=== PATIENT | female | born 1995 | race American Indian/Alaskan Native ===

== ENCOUNTER 2021-10-12 15:12 | Emergency (ER) | payer MEDICAID ==
--- NOTE | 2021-10-12 15:45 | Emergency Department Report ---
ED ENT HPI - General Chief complaint: Sore Throat Stated complaint: SORE THROAT Time Seen by Provider: 10/12/21 15:21 Source: patient Mode of arrival: Ambulatory Limitations: No Limitations - History of Present Illness Initial comments: 25-year-old female presents to the ER today with complaints of sore throat. She states that symptoms started about 3 days ago. She reports pain with swallowing and some redness to the back of her throat. She does admit she is status post tonsillectomy since about 2018 2017. She denies any associated rhinorrhea, n new congestion or cough. She denies any fever. She denies any ill contacts. She reports no difficulty opening her mouth or drooling. complaint: sore throat -: Gradual - Related Data Previous Rx's Medication Instructions Recorded Last Taken Type Ibuprofen [Motrin] 600 mg PO Q8H PRN #30 tablet 10/12/21 Unknown Rx Allergies Allergy/AdvReac Type Severity Reaction Status Date / Time No Known Allergies Allergy Verified 10/12/21 16:23 ED Dental HPI - General Chief complaint: Sore Throat Stated complaint: SORE THROAT Time Seen by Provider: 10/12/21 15:21 Source: patient Mode of arrival: Ambulatory Limitations: No Limitations - Related Data Previous Rx's Medication Instructions Recorded Last Taken Type Ibuprofen [Motrin] 600 mg PO Q8H PRN #30 tablet 10/12/21 Unknown Rx Allergies Allergy/AdvReac Type Severity Reaction Status Date / Time No Known Allergies Allergy Verified 10/12/21 16:23 ED Review of Systems ROS: Stated complaint: SORE THROAT Other details as noted in HPI Comment: All other systems reviewed and negative Constitutional: denies: chills, fever Eyes: denies: eye pain, eye discharge, vision change ENT: throat pain Respiratory: denies: cough, shortness of breath, SOB with exertion, SOB at rest, wheezing Cardiovascular: denies: chest pain, palpitations Genitourinary: denies: urgency, dysuria, frequency, hematuria, discharge, abnormal menses, dyspareunia Musculoskeletal: denies: back pain, joint swelling, arthralgia Skin: denies: rash, lesions, change in color, change in hair/nails, pruritus Neurological: denies: headache, weakness, numbness, paresthesias, confusion, abnormal gait, vertigo Psychiatric: denies: anxiety, depression, auditory hallucinations, visual hallucinations, homicidal thoughts, suicidal thoughts Hematological/Lymphatic: denies: easy bleeding, easy bruising, swollen glands ED Past Medical Hx - Social History Smoking Status: Never Smoker Substance Use Type: None - Medications Home Medications: Home Medications Medication Instructions Recorded Confirmed Last Taken Type Ibuprofen [Motrin] 600 mg PO Q8H PRN #30 tablet 10/12/21 Unknown Rx ED Physical Exam - General Limitations: No Limitations General appearance: alert, in no apparent distress - Head Head exam: Present: atraumatic, normocephalic, normal inspection - Eye Eye exam: Present: normal appearance, PERRL, EOMI Pupils: Present: normal accommodation - ENT ENT exam: Present: normal exam, mucous membranes moist - Expanded ENT Exam Expanded Mouth exam: Present: normal external inspection. Absent: drooling, trismus, muffled voice, tongue normal, tongue elevation, laceration Throat exam: Positive: other (Mild erythema noted to the posterior pharynx but otherwise no swelling, no mass,) - Neck Neck exam: Present: normal inspection, full ROM. Absent: meningismus, lymphadenopathy - Respiratory Respiratory exam: Present: normal lung sounds bilaterally. Absent: respiratory distress, wheezes, rales, rhonchi - Cardiovascular Cardiovascular Exam: Present: regular rate, normal rhythm, normal heart sounds - Neurological Exam Neurological exam: Present: alert, oriented X3, CN II-XII intact, normal gait - Psychiatric Psychiatric exam: Present: normal affect, normal mood - Skin Skin exam: Present: intact ED Course Vital Signs 10/12/21 10/12/21 15:16 16:20 Temperature 98.4 F 97.7 F Pulse Rate 86 75 Respiratory 15 14 Rate Blood Pressure 113/65 Blood Pressure 116/72 [Right] O2 Sat by Pulse 98 99 Oximetry Critical care attestation.: If time is entered above; I have spent that time in minutes in the direct care of this critically ill patient, excluding procedure time. ED Disposition Clinical Impression: Viral pharyngitis Disposition: HOME / SELF CARE / HOMELESS Is pt being admited?: No Does the pt Need Aspirin: No Condition: Stable Instructions: Pharyngitis Additional Instructions: Take the motrin as prescribed for pain. You can also take allh-ugv-xeygolc throat lozenges or throat sprays to help soothe your throat. Follow-up with your PCP. Return to the ER if symptoms worsens in any way Prescriptions: Ibuprofen [Motrin] 600 mg PO Q8H PRN #30 tablet PRN Reason: Pain Referrals: PRIMARY CARE, [Primary Care Provider] - 3-5 Days Forms: Work/School Release Form(ED) Time of Disposition: 16:27
[2021-10-12 16:22] VITALS: BP 113/65
== END 2021-10-12 16:39 | disposition home or self-care (01) ==
LOC: ED 15:12
DX: J02.8 Acute pharyngitis due to other specified organisms (principal)
CPT/HCPCS: 87116; 87430; 99283

== ENCOUNTER 2021-11-11 18:13 | Emergency (ER) | payer MEDICAID ==
[2021-11-11 18:43] VITALS: BP 116/78
[2021-11-11 20:08] LABS: Bilirubin,Urine NEG (Negative); Blood,Urine NEG (Negative); Color,Urine Yellow (Yellow); Mucus,Urine FEW /HPF; Protein,Urine <15 mg/dL mg/dL (Negative); Urobilinogen,Urine < 2.0 mg/dL (<2.0)
[2021-11-11 20:15] LABS: Basophils % (Auto) 0.4 % (0.0-1.8); Eosinophils # (Auto) 0.1 K/mm3 (0.0-0.4); Eosinophils % (Auto) 1.3 % (0.0-4.3); Hematocrit 38.5 % (30.3-42.9); Hemoglobin 12.5 gm/dl (10.1-14.3); Lymphocytes # (Auto) 2.1 K/mm3 (1.2-5.4); Lymphocytes % (Auto) 37.5 % (13.4-35.0); Mean Corpuscular HGB Conc 33 % (30-34); Mean Corpuscular Volume 91 fl (79-97); Monocytes # (Auto) 0.5 K/mm3 (0.0-0.8); Monocytes % (Auto) 9.1 % (0.0-7.3); Platelet Count 236 K/mm3 (140-440); Red Blood Count 4.21 M/mm3 (3.65-5.03); Red Cell Distribution Width 13.9 % (13.2-15.2)
[2021-11-11 20:36] LABS: Alanine Aminotransferase 22 units/L (7-56); Blood Urea Nitrogen 7 mg/dL (7-17); Calcium 9.6 mg/dL (8.4-10.2); Hemolysis Index 7
[2021-11-11 20:37] LABS: BUN/Creatinine Ratio 12
--- NOTE | 2021-11-11 23:02 | Ultrasound Report ---
ULTRASOUND OBSTETRIC, first trimester INDICATION / CLINICAL INFORMATION: , vaginal bleeding. Clinical Gestational Age (GA) in weeks, days: TECHNIQUE: Transabdominal. Transvaginal COMPARISON: None available. FINDINGS: UTERUS: The uterus has a normal size and appearance measuring 9.8 x 4.7 x 6.2 cm. Within the endometr ium there is a small round fluid collection, potentially representing an early gestational sac. At th is time there is no yolk sac visible to confirm that this is a gestational sac. Estimated gestational age, if this is a true gestational sac, is 5 weeks 3 days. ADNEXA: No significant abnormality. Right ovary is unremarkable. There is a 1.5 cm cyst within the le ft ovary. FREE FLUID: Trace amount of free fluid in the posterior cul-de-sac. ADDITIONAL FINDINGS: None. IMPRESSION: 1. Small round fluid collection is present within the uterus, potentially representing a very early g estational sac. If fluid collection is a gestational sac, estimated age is 5 weeks 3 days. Signer Name: Alyssa Lopez MD Signed: 11/11/2021 10:57 PM Workstation Name: [id number]
--- NOTE | 2021-11-11 23:45 | Emergency Department Report ---
ED Female HPI - General Chief complaint: Vaginal Bleeding Stated complaint: SPOTTING Source: patient Mode of arrival: Ambulatory Limitations: No Limitations - History of Present Illness Initial comments: Patient is a A1 26-year-old -[place] female who is approximately 4 to 5 weeks gestation presented to the ED with complaint of acute onset persistent vaginal spotting and suprapubic pain for the last 1 week, worse in the last 2 days. Patient states that the spotting increasing frequency and severity in the last 12 hours. Patient denies dizziness, syncope, fever, chills, dysuria, urinary frequency and urgency, chest pain or shortness of breath, nausea and vomiting, low back pain, traumatic injury or heavy lifting and fall, diarrhea or headache. MD Complaint: vaginal bleeding, pelvic pain -: Sudden, week(s) (1) Location: suprapubic, other Radiation: non-radiating Severity: moderate Severity scale (0 -10): 4 Quality: cramping, dull Consistency: intermittent Improves with: none Worsens with: none Are you Now?: Yes Associated Symptoms: denies other symptoms, vaginal bleeding, abdominal pain (Suprapubic). denies: vaginal discharge, nausea/vomiting, fever/chills, headaches, loss of appetite, dysuria, hematuria, seizure, shortness of breath, syncope, weakness - Related Data Sexually active: Yes : 3 Para: 1 A: 1 Previous Rx's Medication Instructions Recorded Last Taken Type Ibuprofen [Motrin] 600 mg PO Q8H PRN #30 tablet 10/12/21 Unknown Rx Acetaminophen [Tylenol] 500 mg PO Q6HR PRN #40 tablet 11/11/21 Unknown Rx Allergies Allergy/AdvReac Type Severity Reaction Status Date / Time No Known Allergies Allergy Verified 10/12/21 16:23 ED Review of Systems ROS: Stated complaint: SPOTTING Other details as noted in HPI Constitutional: denies: chills, fever Eyes: denies: eye pain, eye discharge, vision change ENT: denies: ear pain, throat pain Respiratory: denies: cough, shortness of breath, wheezing Cardiovascular: denies: chest pain, palpitations Endocrine: no symptoms reported Gastrointestinal: abdominal pain (Suprapubic pain). denies: nausea, vomiting, diarrhea Genitourinary: abnormal menses (Vaginal bleeding and spotting). denies: urgency, dysuria, frequency, hematuria, discharge, dyspareunia Musculoskeletal: denies: back pain, joint swelling, arthralgia Skin: denies: rash, lesions Neurological: denies: headache, weakness, paresthesias Psychiatric: denies: anxiety, depression Hematological/Lymphatic: denies: easy bleeding, easy bruising ED Past Medical Hx - Past Medical History Previous Medical History?: No - Surgical History Additional Surgical History: TONSILS - Social History Smoking Status: Never Smoker Substance Use Type: None - Medications Home Medications: Home Medications Medication Instructions Recorded Confirmed Last Taken Type Ibuprofen [Motrin] 600 mg PO Q8H PRN #30 tablet 10/12/21 Unknown Rx Acetaminophen [Tylenol] 500 mg PO Q6HR PRN #40 tablet 11/11/21 Unknown Rx ED Physical Exam - General Limitations: No Limitations General appearance: alert, in no apparent distress - Head Head exam: Present: atraumatic, normocephalic, normal inspection - Eye Eye exam: Present: normal appearance, PERRL, EOMI - ENT ENT exam: Present: normal exam, normal orophraynx, mucous membranes moist, TM's normal bilaterally, normal external ear exam - Neck Neck exam: Present: normal inspection, full ROM. Absent: tenderness - Respiratory Respiratory exam: Present: normal lung sounds bilaterally. Absent: respiratory distress, wheezes, rales, rhonchi, chest wall tenderness, accessory muscle use, prolonged expiratory - Cardiovascular Cardiovascular Exam: Present: regular rate, normal rhythm, normal heart sounds. Absent: systolic murmur, diastolic murmur, rubs, gallop - GI/Abdominal GI/Abdominal exam: Present: soft, tenderness (Palpable mild suprapubic tend erness), normal bowel sounds. Absent: guarding, rebound, hyperactive bowel sounds, hypoactive bowel sounds, mass, pulsatile mass - Bi-manual exam: Present: other (Pelvic exam deferred at this time) - Extremities Exam Extremities exam: Present: normal inspection, full ROM, normal capillary refill - Back Exam Back exam: Present: normal inspection, full ROM. Absent: tenderness, CVA tenderness (L), muscle spasm, paraspinal tenderness, vertebral tenderness - Neurological Exam Neurological exam: Present: alert, oriented X3, CN II-XII intact, normal gait, reflexes normal - Psychiatric Psychiatric exam: Present: normal affect, normal mood - Skin Skin exam: Present: warm, dry, intact, normal color. Absent: rash ED Course Vital Signs 11/11/21 18:41 Temperature 98.7 F Pulse Rate 86 Respiratory 18 Rate Blood Pressure 116/78 O2 Sat by Pulse 100 Oximetry ED Medical Decision Making - Lab Data Result diagrams: 11/11/21 20:03 11/11/21 20:03 - Radiology Data Radiology results: report reviewed, image reviewed [facility] [address] [place] [address] Ultrasound Report Signed Patient: LUIS FERNANDO MONROE MR#: [id number] : 1995 Acct:[id number] Age/Sex: 26 / F ADM Date: 11/11/21 Loc: ED Attending Dr: Ordering Physician: MARCEL SULLIVAN Date of Service: 11/11/21 Procedure(s): US OB transvaginal Accession Number(s): [id number] cc: MARCEL SULLIVAN ULTRASOUND OBSTETRIC, first trimester INDICATION / CLINICAL INFORMATION: , vaginal bleeding. Clinical Gestational Age (GA) in weeks, days: TECHNIQUE: Transabdominal. Transvaginal COMPARISON: None available. FINDINGS: UTERUS: The uterus has a normal size and appearance measuring 9.8 x 4.7 x 6.2 cm. Within the endometrium there is a small round fluid collection, potentially representing an early gestational sac. At this time there is no yolk sac visible to confirm that this is a gestational sac. Estimated gestational age, if this is a true gestational sac, is 5 weeks 3 days. ADNEXA: No significant abnormality. Right ovary is unremarkable. There is a 1.5 cm cyst within the left ovary. FREE FLUID: Trace amount of free fluid in the posterior cul-de-sac. ADDITIONAL FINDINGS: None. IMPRESSION: 1. Small round fluid collection is present within the uterus, potentially representing a very early gestational sac. If fluid collection is a gestational sac, estimated age is 5 weeks 3 days. Signer Name: Alyssa Lopez MD Signed: 11/11/2021 10:57 PM Workstation Name: [id number] Transcribed By: Dictated By: Alyssa Lopez MD Electronically Authenticated By: Alyssa Lopez MD Signed Date/Time: 11/11/212256 DD/ 52 TD/TT: Print Cancel - Medical Decision Making This is a A1 26-year-old -[place] female who is approximately 4 to 5 weeks gestation presented to the ED with complaint of acute onset persistent vaginal spotting and suprapubic pain for the last 1 week, worse in the last 2 days. Patient states that the spotting increasing frequency and severity in the last 12 hours. In the ED, patient is alert and oriented x3 and is mostly in distress. Patient is hemodynamically stable. Lab test results were reviewed and are all nonactionable. Transvaginal ultrasound showed a small round fluid collection is present within the uterus, potentially representing a very early gestational sac. If fluid collection is a gestational sac, estimated age is 5 weeks 3 days. Patient was therefore discharged home and advised to maintain a complete pelvic rest and to follow-up with her [employer] physician in 5 to 7 days for reevaluation. Patient was advised to return to the ED immediately if symptoms get worse. - Differential Diagnosis Threatened miscarriage; ectopid ; Ovarian cyst; Subchorionic bleed Critical care attestation.: If time is entered above; I have spent that time in minutes in the direct care of this critically ill patient, excluding procedure time. ED Disposition Clinical Impression: Threatened miscarriage in early , Abdominal pain during in first trimester, Vaginal bleeding affecting early Disposition: 01 HOME / SELF CARE / HOMELESS Is pt being admited?: No Does the pt Need Aspirin: No Condition: Stable Instructions: Threatened Miscarriage, [id number], Abdominal Pain During , [id number], Vaginal Bleeding During , First Trimester, [id number] Additional Instructions: All lab test results were reviewed and are all nonactionable. The transvaginal ultrasound showed small round fluid collection is present within the uterus, potentially representing a very early gestational sac. If fluid collection is a gestational sac, estimated age is 5 weeks 3 days but there was no heart tones, signifying that the may be too early. Therefore maintain a complete pelvic rest, take Tylenol as needed for pain and follow-up with your [employer] physician in 5 to 7 days for reevaluation. Return to the ED immediately if symptoms get worse. Prescriptions: Acetaminophen [Tylenol] 500 mg PO Q6HR PRN #40 tablet PRN Reason: Pain , Severe (7-10) Referrals: EARNEST GONZALEZ MD [Staff Physician] - 3-5 Days Time of Disposition: 23:44 Print Language: PASHTO
== END 2021-11-11 23:57 | disposition home or self-care (01) ==
LOC: ED 18:13
DX: O20.0 Threatened abortion (principal); O26.891 Other specified pregnancy related conditions, first trimester; R10.9 Unspecified abdominal pain; Z3A.01 Less than 8 weeks gestation of pregnancy
CPT/HCPCS: 36415; 76801; 76817; 80053; 81001; 84702; 85025; 86900; 86901; 99284

== ENCOUNTER 2022-02-11 16:08 | Emergency (ER) | payer MEDICAID ==
[2022-02-11 16:56] VITALS: BP 120/77
--- NOTE | 2022-02-11 18:11 | Emergency Department Report ---
<HANNAH BROWN - Last Filed: 02/11/22 20:09> ED Female HPI - General Chief complaint: Urogenital-Female Stated complaint: POSS UTI Time Seen by Provider: 02/11/22 17:09 Source: patient Mode of arrival: Ambulatory Limitations: No Limitations - History of Present Illness Initial comments: 26-year-old -[place] female presents emergency department complaining of a 3-day history of dysuria and suprapubic discomfort radiates to her left flank off and on with this suspicion for possible . She reports no vaginal discharge. No fevers, chills, sweats. No nausea but occasional vomiting. She reports no chest pain or palpitations she reports leg headache. She reports no rashes. Which is manageable so accumulation. To the back of his acute chest pain he was evaluated with a time with a negative pressure wound to the neck, will be here this post management of number redness of her legs like you were here for 4hours is stable vital she will be aggressively. Acute medicine cardiac Dago, follow-up blood day 1 from nursing MD Complaint: dysuria Location: suprapubic Radiation: non-radiating Severity: mild Quality: burning Consistency: constant Improves with: none Worsens with: urination (Will need) Associated Symptoms: dysuria. denies: vaginal discharge, vaginal bleeding, abdominal pain, syncope, weakness - Related Data Previous Rx's Medication Instructions Recorded Last Taken Type Ibuprofen [Motrin] 600 mg PO Q8H PRN #30 tablet 10/12/21 Unknown Rx Acetaminophen [Tylenol] 500 mg PO Q6HR PRN #40 tablet 11/11/21 Unknown Rx Fluconazole 150 mg PO Q72H 7 Days #3 tab 02/11/22 Unknown Rx Nitrofurantoin Crowley/M-Cryst 1 cap PO BID 7 Days #14 cap 02/11/22 Unknown Rx [Macrobid CAP] Allergies Allergy/AdvReac Type Severity Reaction Status Date / Time No Known Allergies Allergy Verified 10/12/21 16:23 ED Review of Systems Comment: All other systems reviewed and negative ED Past Medical Hx - Surgical History Additional Surgical History: TONSILS - Social History Smoking Status: Never Smoker Substance Use Type: None - Medications Home Medications: Home Medications Medication Instructions Recorded Confirmed Last Taken Type Ibuprofen [Motrin] 600 mg PO Q8H PRN #30 tablet 12/07/21 Unknown Rx Acetaminophen [Tylenol] 500 mg PO Q6HR PRN #40 tablet 11/11/21 Unknown Rx Fluconazole 150 mg PO Q72H 7 Days #3 tab 02/11/22 Unknown Rx Nitrofurantoin Crowley/M-Cryst 1 cap PO BID 7 Days #14 cap 02/11/22 Unknown Rx [Macrobid CAP] ED Physical Exam - General Limitations: No Limitations General appearance: alert, in no apparent distress - Head Head exam: Present: atraumatic, normocephalic - Eye Eye exam: Present: normal appearance, PERRL (CT think because ), EOMI - ENT ENT exam: Present: mucous membranes moist - Neck Neck exam: Present: normal inspection - Respiratory Respiratory exam: Present: normal lung sounds bilaterally. Absent: respiratory distress, wheezes, rales, decreased breath sounds - Cardiovascular Cardiovascular Exam: Present: regular rate, normal rhythm. Absent: systolic murmur, diastolic murmur, rubs, gallop - GI/Abdominal GI/Abdominal exam: Present: soft, normal bowel sounds - Extremities Exam Extremities exam: Present: normal inspection - Back Exam Back exam: Present: normal inspection - Neurological Exam Neurological exam: Present: alert, oriented X3 - Psychiatric Psychiatric exam: Present: normal affect, normal mood - Skin Skin exam: Present: warm, dry, intact, normal color. Absent: rash ED Medical Decision Making - Lab Data Lab Results 02/11/22 Range/Units 18:19 Urine Color Yellow (Yellow) Urine Turbidity Slightly-cloudy (Clear) Urine pH 7.0 (5.0-7.0) Ur Specific Bryant 1.019 (1.003-1.030) Urine Protein <15 mg/dl (Negative) mg/dL Urine Glucose (UA) Neg (Negative) mg/dL Urine Ketones Neg (Negative) mg/dL Urine Blood Neg (Negative) Urine Nitrite Neg (Negative) Urine Bilirubin Neg (Negative) Urine Urobilinogen < 2.0 (<2.0) mg/dL Ur Leukocyte Esterase Mod (Negative) Urine WBC (Auto) > 182.0 H (0.0-6.0) /HPF Urine RBC (Auto) 5.0 (0.0-6.0) /HPF U Epithel Cells (Auto) 5.0 (0-13.0) /HPF Urine Mucus Few /HPF Urine HCG, Qual Negative (Negative) - Medical Decision Making This patient presents to the emergency department with symptoms consistent with acute uncomplicated cystitis. No systemic symptoms. Not septic. She is well- appearing. Low suspicion for acute pyelonephritis given the lack of fever, CVA tenderness, or systemic features. Low suspicion for for kidney stone or infected stone. Not in age range for and her history and and presentation are complicated. No no indications for labs or imaging at this time. ED Disposition Clinical Impression: Vulvovaginitis, Pyuria Disposition: HOME / SELF CARE / HOMELESS Is pt being admited?: No Does the pt Need Aspirin: No Condition: Stable Instructions: Vaginitis, [id number], Urinary Tract Infection, Adult, [id number] Additional Instructions: Return to the ER if your symptoms worsen Prescriptions: Fluconazole 150 mg PO Q72H 7 Days #3 tab Nitrofurantoin Crowley/M-Cryst [Macrobid CAP] 1 cap PO BID 7 Days #14 cap Referrals: RAFAEL ESPINOZA MD [Primary Care Provider] - 3-5 Days <SAMUEL JAVED U - Last Filed: 02/11/22 23:54> ED Review of Systems ROS: Stated complaint: POSS UTI Other details as noted in HPI ED Course Vital Signs 02/11/22 16:54 Temperature 98.1 F Pulse Rate 79 Respiratory 18 Rate Blood Pressure 120/77 [Right] O2 Sat by Pulse 100 Oximetry ED Medical Decision Making - Medical Decision Making Patient fully seen and examined by me. Please see my note Critical care attestation.: If time is entered above; I have spent that time in minutes in the direct care of this critically ill patient, excluding procedure time. ED Disposition Is pt being admited?: No Does the pt Need Aspirin: No
[2022-02-11 18:38] LABS: Bilirubin,Urine NEG (Negative); Blood,Urine NEG (Negative); Color,Urine Yellow (Yellow); Mucus,Urine FEW /HPF; Protein,Urine <15 mg/dL mg/dL (Negative); Urobilinogen,Urine < 2.0 mg/dL (<2.0)
[2022-02-11 18:42] LABS: HCG Qualitative,Urine Negative (Negative); WBC,Urine > 182.0 /HPF (0.0-6.0)
--- NOTE | 2022-02-11 20:06 | Emergency Department Report ---
ED General Adult HPI - General Chief complaint: Urogenital-Female Stated complaint: POSS UTI Time Seen by Provider: 02/11/22 17:09 Source: patient Mode of arrival: Ambulatory Limitations: No Limitations - History of Present Illness Initial comments: patient presents with complaints of itching, irritation and some swelling in her vaginal area. Denies painful urination, vaginal discharge. Reports urinary frequency. Denies abdominal pain, back pain, fever, chills, unprotected sex. - Related Data Previous Rx's Medication Instructions Recorded Last Taken Type Ibuprofen [Motrin] 600 mg PO Q8H PRN #30 tablet 10/12/21 Unknown Rx Acetaminophen [Tylenol] 500 mg PO Q6HR PRN #40 tablet 11/11/21 Unknown Rx Fluconazole 150 mg PO Q72H 7 Days #3 tab 02/11/22 Unknown Rx Nitrofurantoin Gem/M-Cryst 1 cap PO BID 7 Days #14 cap 02/11/22 Unknown Rx [Macrobid CAP] Allergies Allergy/AdvReac Type Severity Reaction Status Date / Time No Known Allergies Allergy Verified 10/12/21 16:23 ED Review of Systems ROS: Stated complaint: POSS UTI Other details as noted in HPI Comment: All other systems reviewed and negative Constitutional: denies: chills, fever ED Past Medical Hx - Past Medical History Previous Medical History?: No - Surgical History Additional Surgical History: TONSILS - Social History Smoking Status: Never Smoker Substance Use Type: None - Medications Home Medications: Home Medications Medication Instructions Recorded Confirmed Last Taken Type Ibuprofen [Motrin] 600 mg PO Q8H PRN #30 tablet 10/12/21 Unknown Rx Acetaminophen [Tylenol] 500 mg PO Q6HR PRN #40 tablet 11/11/21 Unknown Rx Fluconazole 150 mg PO Q72H 7 Days #3 tab 02/11/22 Unknown Rx Nitrofurantoin Gem/M-Cryst 1 cap PO BID 7 Days #14 cap 02/11/22 Unknown Rx [Macrobid CAP] ED Physical Exam - General Limitations: No Limitations General appearance: alert, in no apparent distress - Head Head exam: Present: atraumatic, normocephalic - Eye Eye exam: Present: PERRL, EOMI - ENT ENT exam: Present: mucous membranes moist, other (airway patent) - Neck Neck exam: Present: other (supple; no JVD) - Respiratory Respiratory exam: Present: other (good air entry, nml I:E, CTAB; no use of LUCAS) - Cardiovascular Cardiovascular Exam: Present: regular rate. Absent: rubs, gallop - GI/Abdominal GI/Abdominal exam: Present: soft, normal bowel sounds. Absent: distended, tenderness, guarding, rebound - External exam: Present: other (speech and hearing director present; mild edema of labia majora; no ulcerations) Bi-manual exam: Absent: cervical motion tendernes - Extremities Exam Extremities exam: Present: full ROM. Absent: tenderness - Back Exam Back exam: Present: full ROM. Absent: CVA tenderness (R), CVA tenderness (L) - Neurological Exam Neurological exam: Present: alert, oriented X3, CN II-XII intact. Absent: motor sensory deficit - Skin Skin exam: Present: warm, normal color ED Course Vital Signs 02/11/22 16:54 Temperature 98.1 F Pulse Rate 79 Respiratory 18 Rate Blood Pressure 120/77 [Right] O2 Sat by Pulse 100 Oximetry ED Medical Decision Making - Lab Data Laboratory Tests 02/11/22 18:19 Urine Color Yellow Urine Turbidity Slightly-cloudy Urine pH 7.0 Ur Specific [place] 1.019 Urine Protein <15 mg/dl Urine Glucose (UA) Neg Urine Ketones Neg Urine Blood Neg Urine Nitrite Neg Urine Bilirubin Neg Urine Urobilinogen < 2.0 Ur Leukocyte Esterase Mod Urine WBC (Auto) > 182.0 H Urine RBC (Auto) 5.0 U Epithel Cells (Auto) 5.0 Urine Mucus Few Urine HCG, Qual Negative - Medical Decision Making Diff dz: likely 2/2 severe candidal vulvovaginitis +/- UTI. STIs less likely. No signs of pyelonephritis, PID. Critical care attestation.: If time is entered above; I have spent that time in minutes in the direct care of this critically ill patient, excluding procedure time. ED Disposition Clinical Impression: Vulvovaginitis, Pyuria Disposition: 01 HOME / SELF CARE / HOMELESS Is pt being admited?: No Does the pt Need Aspirin: No Condition: Good Instructions: Vaginitis, [id number], Urinary Tract Infection, Adult, [id number] Additional Instructions: Return to the ER if your symptoms worsen Prescriptions: Fluconazole 150 mg PO Q72H 7 Days #3 tab Nitrofurantoin Gem/M-Cryst [Macrobid CAP] 1 cap PO BID 7 Days #14 cap Referrals: RAFAEL ESPINOZA MD [Primary Care Provider] - 3-5 Days Time of Disposition: 19:00
== END 2022-02-11 21:28 | disposition home or self-care (01) ==
LOC: ED 16:08
DX: N76.0 Acute vaginitis (principal); R82.81 Pyuria; Z79.899 Other long term (current) drug therapy
CPT/HCPCS: 81001; 81025; 99283

== ENCOUNTER 2022-05-03 07:06 | Emergency (ER) | payer MEDICAID ==
[2022-05-03 08:33] LABS: Bilirubin,Urine NEG (Negative); Blood,Urine NEG (Negative); Color,Urine Yellow (Yellow); Protein,Urine <15 mg/dL mg/dL (Negative); Urobilinogen,Urine < 2.0 mg/dL (<2.0)
[2022-05-03 08:35] LABS: Mucus,Urine FEW /HPF; RBC,Urine < 1.0 /HPF (0.0-6.0)
[2022-05-03 10:15] LABS: HCG Qualitative,Urine Negative (Negative)
--- NOTE | 2022-05-03 10:55 | Emergency Department Report ---
ED Female HPI - General Chief complaint: Urogenital-Female Stated complaint: FREQUENT URINATION/HEADACHE/VAGINAL ODOR Source: patient Mode of arrival: Ambulatory Limitations: No Limitations - History of Present Illness Initial comments: 26-year-old female presents to the ED complaining of dysuria with a foul odor to the vaginal area x4 days. Patient denies any vaginal discharge. States that she noted she had a foul odor after having sexual intercourse. She states that she is having protected sexual intercourse. She states last menstrual cycle was April 11, 2020. Patient denies any abdominal pain, nausea ,vomiting or diarrhea. Patient is alert and oriented x3. No acute distress noted no ill appearance noted. Patient states that she has recurrent bacterial vaginosis and is concerned that she has a today. Improves with: none Worsens with: urination Are you Now?: No - Related Data Previous Rx's Medication Instructions Recorded Last Taken Type Ibuprofen [Motrin] 600 mg PO Q8H PRN #30 tablet 10/12/21 Unknown Rx Acetaminophen [Tylenol] 500 mg PO Q6HR PRN #40 tablet 11/11/21 Unknown Rx Fluconazole 150 mg PO Q72H 7 Days #3 tab 02/11/22 Unknown Rx Nitrofurantoin Eddy/M-Cryst 1 cap PO BID 7 Days #14 cap 02/11/22 Unknown Rx [Macrobid CAP] Fluconazole [Diflucan TAB] 200 mg PO QDAY 2 Days #2 tablet 05/03/22 Unknown Rx metroNIDAZOLE [Flagyl] 500 mg PO Q12HR 7 Days #14 tab 05/03/22 Unknown Rx Allergies Allergy/AdvReac Type Severity Reaction Status Date / Time No Known Allergies Allergy Verified 05/03/22 07:24 ED Review of Systems ROS: Stated complaint: FREQUENT URINATION/HEADACHE/VAGINAL ODOR Other details as noted in HPI Constitutional: denies: chills, fever Eyes: denies: eye pain, eye discharge, vision change ENT: denies: ear pain, throat pain Respiratory: denies: cough, shortness of breath, wheezing Cardiovascular: denies: chest pain, palpitations Endocrine: no symptoms reported Gastrointestinal: denies: abdominal pain, nausea, diarrhea Genitourinary: denies: urgency, dysuria, discharge Musculoskeletal: denies: back pain, joint swelling, arthralgia Skin: denies: rash, lesions Neurological: denies: headache, weakness, paresthesias Psychiatric: denies: anxiety, depression Hematological/Lymphatic: denies: easy bleeding, easy bruising ED Past Medical Hx - Past Medical History Previous Medical History?: Yes Hx Asthma: Yes - Surgical History Additional Surgical History: TONSILS - Social History Smoking Status: Unknown if ever smoked - Medications Home Medications: Home Medications Medication Instructions Recorded Confirmed Last Taken Type Ibuprofen [Motrin] 600 mg PO Q8H PRN #30 tablet 10/12/21 Unknown Rx Acetaminophen [Tylenol] 500 mg PO Q6HR PRN #40 tablet 11/11/21 Unknown Rx Fluconazole 150 mg PO Q72H 7 Days #3 tab 02/11/22 Unknown Rx Nitrofurantoin Eddy/M-Cryst 1 cap PO BID 7 Days #14 cap 02/11/22 Unknown Rx [Macrobid CAP] Fluconazole [Diflucan TAB] 200 mg PO QDAY 2 Days #2 tablet 05/03/22 Unknown Rx metroNIDAZOLE [Flagyl] 500 mg PO Q12HR 7 Days #14 tab 05/03/22 Unknown Rx ED Physical Exam - General Limitations: No Limitations General appearance: alert, in no apparent distress - Head Head exam: Present: atraumatic, normocephalic - Eye Eye exam: Present: normal appearance - ENT ENT exam: Present: mucous membranes moist - Neck Neck exam: Present: normal inspection - Respiratory Respiratory exam: Present: normal lung sounds bilaterally. Absent: respiratory distress - Cardiovascular Cardiovascular Exam: Present: regular rate, normal rhythm. Absent: systolic murmur, diastolic murmur, rubs, gallop - GI/Abdominal GI/Abdominal exam: Present: soft, normal bowel sounds - Speculum exam: Present: normal speculum exam. Absent: cervical discharge, vaginal bleeding - Extremities Exam Extremities exam: Present: normal inspection - Back Exam Back exam: Present: normal inspection - Neurological Exam Neurological exam: Present: alert, oriented X3 - Psychiatric Psychiatric exam: Present: normal affect, normal mood - Skin Skin exam: Present: warm, dry, intact, normal color. Absent: rash ED Course Vital Signs 05/03/22 05/03/22 07:22 10:00 Temperature 97.7 F Pulse Rate 66 Respiratory 14 Rate Blood Pressure 112/78 O2 Sat by Pulse 100 98 Oximetry ED Medical Decision Making - Medical Decision Making 26-year-old female presents to the ED complaining of dysuria with a foul odor to the vaginal area x4 days. Patient denies any vaginal discharge. States that she noted she had a foul odor after having sexual intercourse. She states that she is having protected sexual intercourse. She states last menstrual cycle was April 11, 2020. Patient denies any abdominal pain, nausea ,vomiting or diarrhea. Patient is alert and oriented x3. No acute distress noted no ill appearance noted. Patient states that she has recurrent bacterial vaginosis and is concerned that she has a today. Wet prep examination show bacterial vaginosis. Rechecked the patient is resting quietly quietly and comfortable and feeling better. I discussed the results of diagnostic study, my clinical impression and the plan for further treatment with the patient. Patient agrees with plan and discharge at this present time. All question addressed. I have given the patient instruction regarding a diagnosis ,expectation ,follow- up and return precaution. I explained to the patient that emergent condition may arise and to return to the ED for new worsen and any new persisting condition. I have explained the importance of following up with the primary care physician or referral physician listed below has instructed. The patient verbalized understanding of discharge instruction. Critical care attestation.: If time is entered above; I have spent that time in minutes in the direct care of this critically ill patient, excluding procedure time. ED Disposition Clinical Impression: Bacterial vaginosis Disposition: 01 HOME / SELF CARE / HOMELESS Is pt being admited?: No Does the pt Need Aspirin: No Condition: Stable Instructions: Bacterial Vaginosis (ED), Bacterial Vaginosis, [id number], Antibiotic Medicine, Adult, [id number], Vaginitis, [id number] Additional Instructions: Take medication as prescribed Return to the ED for any worsening symptoms Prescriptions: Fluconazole [Diflucan TAB] 200 mg PO QDAY 2 Days #2 tablet metroNIDAZOLE [Flagyl] 500 mg PO Q12HR 7 Days #14 tab Referrals: RAFAEL ESPINOZA MD [Primary Care Provider] - 3-5 Days [facility] [Provider Group] - 3-5 Days Forms: STI Treatment and Prevention, Work/School Release Form(ED) Time of Disposition: 10:59
[2022-05-03 11:17] VITALS: BP 124/70
== END 2022-05-03 11:08 | disposition home or self-care (01) ==
LOC: ED 07:06
DX: N76.0 Acute vaginitis (principal); B96.89 Other specified bacterial agents as the cause of diseases classified elsewhere; J45.909 Unspecified asthma, uncomplicated; Z98.890 Other specified postprocedural states
CPT/HCPCS: 81001; 81025; 87210; 99284